=== PATIENT | female | born 1935 | race Caucasian/White ===

== ENCOUNTER 2016-06-25 05:42 | Emergency (ER) | payer MEDICARE, MEDICAID ==
[2016-06-25] MEDS ORDERED: NS 1,000 ML IV ONE (05:50)
--- NOTE | 2016-06-25 05:53 | EDPRACDOC ---
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 SHE TRIED TO STAND UP, BUT THEN PASSED OUT. PT FEELS BETTER NOW. PT REPORTS HAVING THESE DIZZY SPELLS IN THE PAST, BUT HAS NEVER HAD THEM EVAL. Symptoms Started: Reports: Suddenly Symptoms Description: Improved Weakness: Bilateral: Generalized Symptoms: Reports: Vertigo Associated signs and symptoms:: Reports: None <Dayanna Matthews - Last Filed: 06/25/16 06:49> <Laura Rico - Last Filed: 06/25/16 13:03> - General Information Stated Complaint: DIZZINESS/CHEST PAIN Time Seen by Provider: 06/25/16 05:43 Home Medications: Home Medications Cyanocobalamin (Vitamin B-12) [Vitamin B-12] 500 mcg PO DAILY 07/09/12 Aspirin [Aspirin EC] 81 mg PO DAILY 06/25/16 Aspirin [Ecotrin] 81 mg PO DAILY #30 tablet. 06/25/16 Lisinopril 10 mg PO DAILY #30 tablet 06/25/16 Allergies/Adverse Reactions: Allergies Allergy/AdvReac Type Severity Reaction Status Date / Time No Known Allergies Allergy Verified 06/25/16 08:03 ED Past Medical History - Patient Medical History Cardiac History: Reports: Atrial Fibrillation, Hypertension, Syncope Systemic History: Reports: Cancer (COLON) Surgical History: Reports: Other (COLON RSXN) - Social Medical History Smoking Status: Never smoker ETOH: None Substance Abuse: None Lives In: Home <Dayanna Matthews - Last Filed: 06/25/16 06:49> EDM Review of Systems - Review of Systems ROS Negative Except as Marked: Yes All systems reviewed and were negative except as marked Neurological: Dizziness <Dayanna Matthews - Last Filed: 06/25/16 06:49> - Physical Exam Constitutional: Alert (Awake), No apparent distress Oriented to: Time, Person, Place Last recorded Vital Signs: Oxygen Pulse Oxygen Saturation O2 Device Oxygen Flow Rate Fraction of Inspired Oxygen ( FIO2) - HEENT Head: Normal ( normocephalic) Eye Exam: Normal (PERRL, EOMI, Sclera white) Oropharynx: Normal (Pharynx:Moist without exudate,Gums-no swelling) ENT EAC: Normal TMJ: Normal Nose: No Symptoms Reported (septum midline) Neck: Normal (FROM, trachea at midline) - Respiratory/Cardiovascular Respiratory: Normal - CTA (BBS clear to auscultation without adventitious sounds ) Cardiovascular: Normal (RRR without murmur, gallop or rub) - GI Auscultation: Normal (NABS) Palpation: Normal (Soft,No rebound or guarding, non distended) Tenderness: Non tender Velarde's Sign: Negative - Musculoskeletal Back: Normal (Non-Tender) Extremities: Normal (Normal tone, Pulses 2+ No cyanosis or edema, FROM) - Integumentary Skin: Normal, Warm, Dry Lymphatics: Normal (no adenopathy) - Neurologic Memory Impaired: Normal Motor Function: Normal (Normal tone, Pulses 2+ No cyanosis or edema, FROM) Cranial Nerve: Normal (CN II-X11 intact sensation, strength 5/5) Cerebellar: Normal Mood Description: Normal Thought: Coherent Perception: Normal <Dayanna Matthews - Last Filed: 06/25/16 06:49> - Physical Exam Last recorded Vital Signs: Last Vital Signs Temp 97.6 F 06/25/16 05:45 Pulse 77 06/25/16 07:00 Resp 19 06/25/16 07:00 BP 202/93 H 06/25/16 07:00 Pulse Ox 97 06/25/16 07:00 Oxygen Pulse Oxygen Saturation 97 O2 Device Room Air Oxygen Flow Rate Fraction of Inspired Oxygen ( FIO2) <Laura Rico - Last Filed: 06/25/16 13:03> - Results 06/25/16 06:04 06/25/16 06:04 - EKG EKG #1 EKG Time: 06:00 -: Yes EKG interpreted by me Rate: bpm: 75 [place]: Normal Rhythm: NSR Block: None Hypertrophy: None ST: Normal - Diagnostic Imaging Chest Image interpreted by: Radiologist No active disease. <Dayanna Matthews - Last Filed: 06/25/16 06:49> - Re-evaluation Re-evaluation 2 Re-evaluation Time: 07:29 (I ASSUMED CARE FROM DR. MATTHEWS WITH THE PATIENT STABLE CONDITION.) EPIGASTRIC DISCOMFORT ASSOCIATED WITH NEAR SYNCOPE. LASTED VERY BRIEFLY. PATIENT HAS HAD SEVERAL EPISODES LIKE THIS IN THE PAST. SHE HAS HAD STRESS TESTS IN THE PAST STATES THAT SHE UNDER NO CIRCUMSTANCES WILL HAVE ANOTHER STRESS TEST. SHE UNDERSTANDS THAT THIS STRESS TEST IS TO EVALUATE FOR POSSIBLE CORONARY ARTERY DISEASE. PLAN AT THIS TIME IS 2ND CARDIAC ENZYMES DISCHARGED HOME IF STABLE. - Results 06/25/16 06:04 06/25/16 06:04 WBC 6.2 xk/uL (3.8-10.8) 06/25/16 06:04 RBC 3.97 xM/uL (4.20-5.40) L 06/25/16 06:04 Hgb 12.2 g/dL (12.0-16.0) 06/25/16 06:04 Hct 36.5 % (36-47) 06/25/16 06:04 MCV 92 fL (81-99) 06/25/16 06:04 MCH 30.6 pg (27-32) 06/25/16 06:04 MCHC 33.3 g/dl (33-36) 06/25/16 06:04 RDW 13.0 % (11.5-14.5) 06/25/16 06:04 Plt Count 178 xk/uL (130-400) 06/25/16 06:04 MPV 8.5 fL (7.4-10.4) 06/25/16 06:04 Neut % (Auto) 70.4 % (45-76) 06/25/16 06:04 Lymph % (Auto) 16.4 % (17-44) L 06/25/16 06:04 Dickinson % (Auto) 7.1 % (3-10) 06/25/16 06:04 Eos % (Auto) 5.3 % (0-5) H 06/25/16 06:04 Baso % (Auto) 0.8 % (0-2) 06/25/16 06:04 Absolute Neuts (auto) 4.34 xk/uL (1.7-8.2) 06/25/16 06:04 Absolute Lymphs (auto) 0.99 xk/uL (0.65-4.75) 06/25/16 06:04 PT 9.9 SEC (9.2-11.2) 06/25/16 06:04 INR 1.0 06/25/16 06:04 APTT 21.5 SEC (22-35) L 06/25/16 06:04 Sodium 139 mEq/L (137-146) 06/25/16 06:04 Potassium 3.5 mEq/L (3.5-5.1) 06/25/16 06:04 Chloride 100 mEq/L (98-107) 06/25/16 06:04 Carbon Dioxide 31 mMOL/L (22-33) 06/25/16 06:04 Anion Gap 12 mEq/L (8-16) 06/25/16 06:04 BUN 9 MG/DL (7-17) 06/25/16 06:04 Creatinine 0.80 MG/DL (0.52-1.04) 06/25/16 06:04 Estimated GFR (MDRD) > 60 mL/min (>=60) 06/25/16 06:04 Glucose 110 MG/DL (70-99) H 06/25/16 06:04 Calculated Osmolality 268 MOs/Kg (270-290) L 06/25/16 06:04 Calcium 9.1 MG/DL (8.4-10.2) 06/25/16 06:04 Corrected Calcium 9.3 MG/DL (8.4-10.2) 06/25/16 06:04 Total Bilirubin 1.6 MG/DL (0.2-1.3) H 06/25/16 06:04 AST 20 IU/L (14-36) 06/25/16 06:04 ALT 20 IU/L (9-52) 06/25/16 06:04 Alkaline Phosphatase 78 IU/L (55-165) 06/25/16 06:04 Troponin I < 0.01 ng/mL (<.04) 06/25/16 06:04 Total Protein 7.0 G/DL (6.3-8.2) 06/25/16 06:04 Albumin 3.8 G/DL (3.5-5.0) 06/25/16 06:04 Lab Results 06/25/16 06/25/16 06/25/16 06:04 06:04 06:04 WBC 6.2 RBC 3.97 L Hgb 12.2 Hct 36.5 MCV 92 MCH 30.6 MCHC 33.3 RDW 13.0 Plt Count 178 MPV 8.5 Neut % (Auto) 70.4 Lymph % (Auto) 16.4 L Dickinson % (Auto) 7.1 Eos % (Auto) 5.3 H Baso % (Auto) 0.8 Absolute Neuts (auto) 4.34 Absolute Lymphs (auto) 0.99 PT 9.9 INR 1.0 APTT 21.5 L Sodium 139 Potassium 3.5 Chloride 100 Carbon Dioxide 31 Anion Gap 12 BUN 9 Creatinine 0.80 Estimated GFR (MDRD) > 60 Glucose 110 H Calculated Osmolality 268 L Calcium 9.1 Corrected Calcium 9.3 Total Bilirubin 1.6 H AST 20 ALT 20 Alkaline Phosphatase 78 Troponin I < 0.01 Total Protein 7.0 Albumin 3.8 - Diagnostic Imaging Head Image interpreted by: Radiologist Patient Name: RUFINO SANTO LOC: ED : 1935 AGE: 80 Order Date:06/25/16 Date of Service: Report # [id number] Ord Physician: Dayanna Matthews MD Exam # [id number] Emergency Physician: Dayanna Matthews MD Exam(s): [id number] CT/CT HEAD W/O CM CLINICAL DATA: Syncope EXAM: CT HEAD WITHOUT CONTRAST TECHNIQUE: Contiguous axial images were obtained from the base of the skull through the vertex without intravenous contrast. COMPARISON: 01/25/2006 FINDINGS: There is generalized brain atrophy with commensurate dilatation of the ventricles and sulci. Mild chronic small vessel ischemic change noted within the deep periventricular white matter regions. There is no mass, hemorrhage, edema or other evidence acute parenchymal abnormality. No extra-axial hemorrhage. There are chronic calcified atherosclerotic changes of the large vessels at the skull base. No acute osseous abnormality. Visualized upper paranasal sinuses are clear. Mastoid air cells are clear. Superficial soft tissues are unremarkable. IMPRESSION: No acute findings. No intracranial mass, hemorrhage or edema. Electronically Signed By: Sourav Kessler M.D. On: 06/25/2016 07:08 Electronically Signed By: Sourav Kessler MD Electronically Signed Date/Time: [id number] Dictate Date/Time: 06/25/16 0707 Technologist: Vidal Matute Transcribed By: Ozzy Transcribed Date/Time: 06/25/16 0708 Patient Name: RUFINO SANTO LOC: ED : 1935 AGE: 80 Order Date:06/25/16 Date of Service: Report # [id number] Ord Physician: Dayanna Matthews MD Exam # [id number] Emergency Physician: Dayanna Matthews MD Exam(s): [id number] CT/CT HEAD W/O CM CLINICAL DATA: Syncope EXAM: CT HEAD WITHOUT CONTRAST TECHNIQUE: Contiguous axial images were obtained from the base of the skull through the vertex without intravenous contrast. COMPARISON: 01/25/2006 FINDINGS: There is generalized brain atrophy with commensurate dilatation of the ventricles and sulci. Mild chronic small vessel ischemic change noted within the deep periventricular white matter regions. There is no mass, hemorrhage, edema or other evidence acute parenchymal abnormality. No extra-axial hemorrhage. There are chronic calcified atherosclerotic changes of the large vessels at the skull base. No acute osseous abnormality. Visualized upper paranasal sinuses are clear. Mastoid air cells are clear. Superficial soft tissues are unremarkable. IMPRESSION: No acute findings. No intracranial mass, hemorrhage or edema. Electronically Signed By: Sourav Kessler M.D. On: 06/25/2016 07:08 Electronically Signed By: Sourav Kessler MD Electronically Signed Date/Time: 711 Dictate Date/Time: 06/25/16 0707 Technologist: Vidal Matute Transcribed By: Ozzy Transcribed Date/Time: 06/25/16 0708 <Laura Rico N - Last Filed: 06/25/16 13:03> <Dayanna Matthews C - Last Filed: 06/25/16 06:49> <Laura Rico - Last Filed: 06/25/16 13:03> - Departure Final Diagnosis: Epigastric pain, Hypertension Instructions: Non-pharmacological Pain Management Therapies for Adults (GEN), Abdominal Pain (ED), Chronic Hypertension (ED) Referrals: Vangie Rg MD [Primary Care Provider] - One Week Prescriptions: New Aspirin [Ecotrin] 81 mg PO DAILY #30 tablet. Lisinopril 10 mg PO DAILY #30 tablet No Action Cyanocobalamin (Vitamin B-12) [Vitamin B-12] 500 mcg PO DAILY Aspirin [Aspirin EC] 81 mg PO DAILY
[2016-06-25 06:14] VITALS: TEMP 97.6; BMI 24.5
[2016-06-25 06:28] LABS: AUTOMATED BASOPHIL 0.8 % (0-2); AUTOMATED EOSINOPHIL 5.3 % (0-5); AUTOMATED LYMPH 16.4 % (17-44); AUTOMATED MONOCYTE 7.1 % (3-10); AUTOMATED NEUTROPHIL 70.4 % (45-76); MPV 8.5 fL (7.4-10.4)
[2016-06-25 06:36] LABS: BLOOD UREA NITROGEN 9 MG/DL (7-17); CALC CORRECTED 9.3 MG/DL (8.4-10.2); CALCIUM 9.1 MG/DL (8.4-10.2); CALCULATED OSMOLALITY 268 MOs/Kg (270-290); CHLORIDE 100 mEq/L (98-107); GLUCOSE 110 MG/DL (70-99); PARTIAL THROMB. TIME 21.5 SEC (22-35); SODIUM LEVEL 139 mEq/L (137-146)
--- NOTE | 2016-06-25 06:46 | DIRPT ---
CLINICAL DATA: Chest pain. Epigastric pain EXAM: PORTABLE CHEST 1 VIEW COMPARISON: 01/25/2006 FINDINGS: Normal heart size. Stable aortic tortuosity, accentuated by rightward rotation. There is no edema, consolidation, effusion, or pneumothorax. No acute osseous findings. IMPRESSION: No active disease. Electronically Signed By: Rhett Lizarraga M.D. On: 06/25/2016 06:43
--- NOTE | 2016-06-25 07:11 | DIRPT ---
CLINICAL DATA: Syncope EXAM: CT HEAD WITHOUT CONTRAST TECHNIQUE: Contiguous axial images were obtained from the base of the skull through the vertex without intravenous contrast. COMPARISON: 01/25/2006 FINDINGS: There is generalized brain atrophy with commensurate dilatation of the ventricles and sulci. Mild chronic small vessel ischemic change noted within the deep periventricular white matter regions. There is no mass, hemorrhage, edema or other evidence acute parenchymal abnormality. No extra-axial hemorrhage. There are chronic calcified atherosclerotic changes of the large vessels at the skull base. No acute osseous abnormality. Visualized upper paranasal sinuses are clear. Mastoid air cells are clear. Superficial soft tissues are unremarkable. IMPRESSION: No acute findings. No intracranial mass, hemorrhage or edema. Electronically Signed By: Sourav Kessler M.D. On: 06/25/2016 07:08
[2016-06-25 07:26] LABS: LEUKOCYTES/URINE NEG (NEGATIVE); NITRITE/URINE NEG (NEGATIVE); RBC/URINE TNTC (0-5); URINE OCCULT BLOOD 3+ (NEG/TRACE); WBC/URINE 0-2 (0-5)
[2016-06-25 13:12] VITALS: BP 171/79; PULSE 86
== END 2016-06-25 13:10 | disposition home or self-care (01) ==
LOC: ED 05:42
DX: R10.13 Epigastric pain (principal); I10 Essential (primary) hypertension
CPT/HCPCS: 36415; 70450; 71010; 80053; 81001; 84484; 85025; 85610; 85730; 93005; 96360; 99285